=== PATIENT | female | born 1985 | race Caucasian/White ===

== ENCOUNTER 2016-12-05 01:50 | Emergency (ER) | payer OTHER ==
[~2016-12-05] VITALS: Ht 157.4 cm; Wt 54.4 kg
[~2016-12-05 01:50] MED LIST: 'carisoprodol350 MG PO; AMOXICILLIN500 MG PO; AMOXIL500 MG PO; ATIVAN1 MG PO; CLINDAMYCIN HC300 MG PO; FLEXERIL5 MG PO; GLUCOSAMINE & C1 TE1 PO; HYDROCODONE BIT1 T11 PO; HYDROCODONE BIT1 TA1 PO; MOTRIN600 MG PO; MOTRIN800 MG PO; NAPROSYN500 MG PO; OMNICEF300 MG PO; PERCOCET 325 MG1 TA5 PO; PERCOCET 325 MG1 TA6 PO; PHENERGAN12.5 M1 PO; PHENERGAN25 M1 PO; TRAMADOL HCL50 MG PO; TYLENOL ES500 MG PO; TYLENOL325 M1 PO; ULTRAM50 MG PO; VICODIN 5/500 505 MG PO; VOLTAREN50 MG PO; XANAX1 MG PO; ZANAFLEX2 MG PO; ZOFRAN ODT4 MG SL; ZOLOFT25 MG PO; ZOLOFT50 MG PO
[2016-12-05 02:43] LABS: BILIRUBIN NEGATIVE (NEGATIVE); BLOOD 3+ (NEGATIVE); CLARITY CLEAR (CLEAR); COLOR YELLOW (YELLOW); GLUCOSE NEGATIVE (NEGATIVE); KETONE NEGATIVE (NEGATIVE); LEUKO ESTERASE NEGATIVE (NEGATIVE); NITRITE NEGATIVE (NEGATIVE); PROTEIN NEGATIVE (NEGATIVE); SPECIFIC GRAVITY <= 1.005 (1.005-1.030); UROBILINOGEN 0.2 E.U./dl (0.2-1.0)
[2016-12-05 03:00] LABS: RBC 41-50 rbc/hpf (0-2); URINE REFLEX COMMENT YES (NO)
== END 2016-12-05 03:31 | disposition home or self-care (01) ==
LOC: ED 01:50
PROVIDERS: Emergency Medicine
DX: N93.9 Abnormal uterine and vaginal bleeding, unspecified (principal); F17.200 Nicotine dependence, unspecified, uncomplicated; Z88.6 Allergy status to analgesic agent

== ENCOUNTER 2017-02-04 00:30 | Emergency (ER) | payer OTHER ==
[~2017-02-04] VITALS: Ht 157.4 cm; Wt 54.4 kg
[2017-02-04] MEDS ORDERED: ANAPROX DS550 MG PO (00:59)
== END 2017-02-04 01:56 | disposition home or self-care (01) ==
LOC: ED 00:30
DX: M54.5 Low back pain (principal); F17.200 Nicotine dependence, unspecified, uncomplicated; Z88.6 Allergy status to analgesic agent

== ENCOUNTER 2022-02-09 15:40 | Emergency (ER) | payer OTHER ==
[~2022-02-09] VITALS: Ht 160 cm; Wt 58.1 kg
[~2022-02-09 15:40] MED LIST changes: +ANAPROX DS550 MG PO
[2022-02-09] MEDS ORDERED: AUGMENTIN 875-875 MG PO (16:03)
[2022-02-09] MEDS ORDERED: Motrin,Rufen800 MG PO (16:03)
== END 2022-02-09 16:19 | disposition home or self-care (01) ==
LOC: ED 15:40
DX: K08.89 Other specified disorders of teeth and supporting structures (principal); Z88.6 Allergy status to analgesic agent; Z90.49 Acquired absence of other specified parts of digestive tract

== ENCOUNTER 2022-03-17 17:55 | Emergency (ER) | payer OTHER ==
[~2022-03-17] VITALS: Ht 157.4 cm; Wt 56.7 kg
[~2022-03-17 17:55] MED LIST changes: +AUGMENTIN 875-875 MG PO; +Motrin,Rufen800 MG PO
[2022-03-17] MEDS ORDERED: BUSPAR15 MG PO (18:30)
[2022-03-17] MEDS ORDERED: SUBOXONE 8 MG-1 EACH SL (18:30)
[2022-03-17] MEDS ORDERED: TOPAMAX25 M3 PO (18:30)
== END 2022-03-17 20:31 | disposition home or self-care (01) ==
LOC: ED 17:55
DX: S05.02XA Injury of conjunctiva and corneal abrasion without foreign body, left eye, initial encounter (principal); T20.10XA Burn of first degree of head, face, and neck, unspecified site, initial encounter; Z88.6 Allergy status to analgesic agent; Z79.899 Other long term (current) drug therapy; Z90.49 Acquired absence of other specified parts of digestive tract; Y92.89 Other specified places as the place of occurrence of the external cause

== ENCOUNTER 2023-01-08 00:22 | Emergency (ER) | payer OTHER ==
[~2023-01-08] VITALS: Ht 157.4 cm; Wt 62.6 kg
[~2023-01-08 00:22] MED LIST changes: +BUSPAR15 MG PO; +SUBOXONE 8 MG-1 EACH SL; +TOPAMAX25 M3 PO
[2023-01-08] MEDS ORDERED: OMEPRAZOLE MAGN20 MG PO (00:31)
[2023-01-08] MEDS ORDERED: QUETIAPINE FUM100 M3 PO (00:31)
[2023-01-08 00:56] LABS: BASO # 0.1 10*3/uL (0.0-0.1); BASO % 0.7 % (0.0-1.0); EOS # 0.6 10*3/uL (0.0-0.4); EOS % 6.3 % (1.0-4.0); HEMATOCRIT 37.5 % (37.0-47.0); LYMPH % 32.4 % (27.0-41.0); MEAN CELL VOLUME 86.8 fl (81.0-99.0); MEAN CORPUSCULAR HGB 27.8 pg (27.0-31.0); MEAN PLATELET VOLUME 10.6 fl (9.6-12.3); MONO # 0.5 10*3/uL (0.1-1.0); MONO % 5.5 % (3.0-9.0); NEUT % 54.9 % (47.0-73.0); PLATELET COUNT AUTOMATED 255 10*3/uL (130-400); RED BLOOD COUNT 4.32 10*6/uL (4.10-5.10); RED CELL DISTRI WIDTH 14.4 % (0-14.5); WHITE BLOOD COUNT 9.2 10*3/uL (4.8-10.8)
== END 2023-01-08 01:45 | disposition home or self-care (01) ==
LOC: ED 00:22
PROVIDERS: Internal Medicine
DX: J02.9 Acute pharyngitis, unspecified (principal); Z20.822 Contact with and (suspected) exposure to COVID-19; Z88.8 Allergy status to other drugs, medicaments and biological substances; Z79.899 Other long term (current) drug therapy; Z90.49 Acquired absence of other specified parts of digestive tract